=== PATIENT | female | born 1975 | race Hispanic/Latino ===

== ENCOUNTER 2020-05-12 19:55 | Emergency (ER) | payer OTHER ==
[2020-05-12] MEDS ORDERED: IOHEXOL 350 MG/ML 100ML INFUS..BTL IV ONE (20:05)
[2020-05-12] MEDS ORDERED: MORPHINE SULFATE 2 MG/ML 1ML SYG ONE (20:59)
[2020-05-12] MEDS ORDERED: ONDANSETRON HCL 4 MG/2 ML VIAL ONE (20:59)
[2020-05-12] MEDS ORDERED: TETANUS/DIPHTHERIA TOXOID [ADULT] 0.5 ML VIAL IM ONE (21:47)
[2020-05-12] MEDS ORDERED: LIDOCAINE HCL 1% 20 ML VIAL ONE (22:29)
[2020-05-12] MEDS ORDERED: CEFAZOLIN SODIUM 1 GM VIAL ONE ×2 (22:33→22:36)
[2020-05-12] MEDS ORDERED: SODIUM CHLORIDE 0.9% 100 ML IV ONE ×2 (22:33→22:37)
== END 2020-05-13 01:05 | disposition home or self-care (01) ==
LOC: EDH 19:55
DX: S01.81XA Laceration without foreign body of other part of head, initial encounter (principal); S61.219A Laceration without foreign body of unspecified finger without damage to nail, initial encounter; S09.90XA Unspecified injury of head, initial encounter; S80.811A Abrasion, right lower leg, initial encounter; V89.2XXA Person injured in unspecified motor-vehicle accident, traffic, initial encounter; Y93.89 Activity, other specified; Y92.488 Other paved roadways as the place of occurrence of the external cause; Y99.8 Other external cause status
CPT/HCPCS: 12002; 12013; 36415; 70450; 71045; 71260; 72125; 73130; 73562; 74177; 80053; 80305; 81001; 82550; 83690; 84484; 85025; 85610; 85730; 86850; 86900; 86901; 90471; 90714; 93005; 96361; 96365; 96375; 99291; J0690 ×2; J2405; Q9967; 96366; 96368

== ENCOUNTER 2020-05-13 01:47 | Emergency (ER) | payer OTHER ==
[2020-05-13] MEDS ORDERED: SODIUM CHLORIDE 0.9% 1000ML 2,000 ML IV ONE (01:55)
[2020-05-13] MEDS ORDERED: ONDANSETRON HCL 4 MG/2 ML VIAL ONE (01:55)
[2020-05-13 02:07] LABS: BASOPHILS % (AUTO) 0.5 % (0.0-5.0); EOSINOPHILS % (AUTO) 0.1 % (0.0-8.0); HEMATOCRIT 39.1 % (36-48); LYMPHOCYTES % (AUTO) 20.5 % (21.0-51.0); MEAN CORPUSCULAR HEMOGLOBIN 31.4 pg (27.0-33.0); MEAN CORPUSCULAR VOLUME 95.1 fL (79-99); MONOCYTES % (AUTO) 8.5 % (3.0-13.0); PLATELET COUNT (AUTO) 243 K/uL (130-400); RED BLOOD CELL COUNT(AUTO) 4.11 MIL/uL (4.00-5.50); RED CELL DISTRIBUTION WIDTH 13.6 % (11.0-15.5); WHITE BLOOD COUNT (AUTO) 9.6 K/uL (4.8-10.8)
== END 2020-05-13 05:38 | disposition home or self-care (01) ==
LOC: EDH 01:47
DX: S22.41XA Multiple fractures of ribs, right side, initial encounter for closed fracture (principal); R55 Syncope and collapse; R61 Generalized hyperhidrosis; Z98.890 Other specified postprocedural states; W18.39XA Other fall on same level, initial encounter; Y93.89 Activity, other specified; Y92.89 Other specified places as the place of occurrence of the external cause; Y99.8 Other external cause status
CPT/HCPCS: 36415; 71250; 74176; 82948; 85025; 93005; 96361; 96374; 99285; J2405; J7030

== ENCOUNTER 2020-05-23 11:41 | Emergency (ER) | payer SELFPAY | END 2020-05-23 12:22 | disposition home or self-care (01) | LOC: EDH 11:41 | DX: S61.210D Laceration without foreign body of right index finger without damage to nail, subsequent encounter (principal) | CPT/HCPCS: 99281 ==